=== PATIENT | male | born 2000 | race Caucasian/White ===

== ENCOUNTER 2019-11-23 12:03 | Emergency (ER) | payer OTHER ==
[~2019-11-23] VITALS: Ht 175.3 cm; Wt 81.7 kg
[2019-11-23] MEDS ORDERED: ZOFRAN ODT4 MG PO (13:12)
[2019-11-23] MEDS ORDERED: IBUPROFEN 800800 M1 PO (13:16)
[2019-11-23 13:48] VITALS: BP 126/72
== END 2019-11-23 13:49 | disposition home or self-care (01) ==
LOC: M.ERS 12:03
DX: S06.0X0A Concussion without loss of consciousness, initial encounter (principal); W22.8XXA Striking against or struck by other objects, initial encounter; Y93.89 Activity, other specified; Y92.89 Other specified places as the place of occurrence of the external cause; Y99.8 Other external cause status